=== PATIENT | male | born 1955 | race Asian ===

== ENCOUNTER 2018-04-07 10:33 | Day surgery (SDC) | payer OTHER ==
[~2018-04-07 10:33] MED LIST: CEFAZOLIN 2 GM/50 ML (PMX) 50 ML IVPB; SOD CHLORIDE 0.9% 1,000 ML IV
[2018-04-07 11:15] LABS: ADD MAN DIFF? NO
[2018-04-07 11:19] LABS: BASOPHILS % 0.5 % (0.0-2.0); EOSINOPHILS # 0.3 10^3/ul (0.0-0.5); EOSINOPHILS % 4.3 % (0.0-7.0); HEMATOCRIT 44.3 % (42.0-52.0); HEMOGLOBIN 14.8 g/dl (14.0-18.0); LYMPHOCYTES # 1.2 10^3/ul (0.8-2.9); LYMPHOCYTES % 16.6 % (15.0-51.0); MEAN CORPUSCULAR HGB CONC 33.4 g/dl (32.0-37.0); MEAN CORPUSCULAR VOLUME 92.9 fl (82.0-101.0); MEAN PLATELET VOLUME 10.4 fl (7.4-10.4); MONOCYTE # 0.6 10^3/ul (0.3-0.9); MONOCYTES % 8.2 % (0.0-11.0); NEUTROPHIL # 5.2 10^3/ul (1.6-7.5); NEUTROPHILS % 70.1 % (39.0-77.0); PLATELET COUNT 206 10^3/UL (140-415); RED BLOOD COUNT 4.77 10^6/ul (4.70-6.10); RED CELL DISTRIBUTION WIDTH 12.8 % (11.5-14.5)
[2018-04-07 11:19] LABS: WHITE BLOOD COUNT 7.5 10^3/ul (4.8-10.8)
[2018-04-07 11:45] LABS: ALANINE AMINOTRANSFERASE 53 IU/L (13-69); ALBUMIN 4.2 g/dl (3.3-4.9); ALBUMIN/GLOBULIN RATIO 1.35; ALKALINE PHOSPHATASE 66 IU/L (42-121); ANION GAP 16 (8-16); ASPARTATE AMINO TRANSFERASE 34 IU/L (15-46); BILIRUBIN,INDIRECT 0.5 mg/dl (0-1.1); BILIRUBIN,TOTAL 0.5 mg/dl (0.2-1.3); CARBON DIOXIDE 29 mmol/L (21-31); CHLORIDE 102 mmol/L (97-110); GLUCOSE 111 mg/dl (70-220); TOTAL PROTEIN 7.3 g/dl (6.1-8.1)
[2018-04-07 11:52] LABS: SODIUM 143 mmol/L (135-144)
[2018-04-07 11:53] LABS: BLOOD UREA NITROGEN 14 mg/dl (7-20); CALCIUM 9.3 mg/dl (8.4-10.2); CREATININE 0.79 mg/dl (0.61-1.24); POTASSIUM 4.4 mmol/L (3.5-5.1)
[2018-04-07 12:34] LABS: INR 0.94; PROTIME 12.7 Sec (11.9-14.9)
[2018-04-07] MEDS: BUPIVACAINE 0.25% (MPF) 30 ML INJ (13:44)
[2018-04-07] MEDS: LIDOCAINE 2% (MDV) 20 ML INJ (13:45)
[2018-04-07] MEDS ORDERED: HYDROmorphONE (0.2 MG/ML) 10ML SYG IV ×3 (14:00)
[2018-04-07] MEDS ORDERED: OXYCODONE/ACETAMINOPHEN (5/325) TAB PO ×2 (14:00)
[2018-04-07] MEDS ORDERED: ONDANSETRON 4 MG INJ IV (14:00)
[2018-04-07] MEDS ORDERED: HYDROCODONE/APAP (5/325) TAB PO (14:00)
[2018-04-07] MEDS ORDERED: CEFAZOLIN 1 GM INJ (14:13)
[2018-04-07] MEDS ORDERED: PROPOFOL 20 ML (14:13)
[2018-04-07] MEDS ORDERED: MIDAZOLAM 1 MG/ML 2 ML INJ (14:14)
[2018-04-07] MEDS ORDERED: FENTAnyl 50 MCG/ML VIAL (14:14)
== END 2018-04-07 15:15 | disposition home or self-care (01) ==
LOC: SDS 10:33
DX: D17.24 Benign lipomatous neoplasm of skin and subcutaneous tissue of left leg (principal); E78.5 Hyperlipidemia, unspecified; I10 Essential (primary) hypertension
CPT/HCPCS: 14021; 71045; 80053; 85025; 85610; 85730; 88307; 93005